=== PATIENT | female | born 1975 | race Caucasian/White ===

== ENCOUNTER 2016-04-16 15:57 | Emergency (ER) | payer MEDICAID ==
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
== END 2016-04-16 18:32 | disposition home or self-care (01) ==
LOC: ER 15:57
DX: F10.129 Alcohol abuse with intoxication, unspecified (principal)
CPT/HCPCS: Z7502